=== PATIENT | female | born 1960 | race African-American/Black ===

== ENCOUNTER 2025-02-15 10:30 | Outpatient (RCR) | payer MEDICARE, SELFPAY ==
[2024-12-27 09:34] VITALS: BMI 36.5
[2024-12-27 09:35] VITALS: BMI 36.5
[2025-02-01 09:40] VITALS: BMI 36.6
[2025-02-01 09:42] VITALS: BMI 36.6
== END 2025-03-13 09:39 | disposition home or self-care (01) ==
LOC: ANHDMC 10:30
PROVIDERS: PCP Internal Medicine; Visit Provider Internal Medicine Endocrinology, Diabetes & Metabolism
DX: E11.29 Type 2 diabetes mellitus with other diabetic kidney complication (principal); R80.9 Proteinuria, unspecified; E11.65 Type 2 diabetes mellitus with hyperglycemia; Z71.3 Dietary counseling and surveillance; Z71.89 Other specified counseling
CPT/HCPCS: 97802; 97803; G0108

== ENCOUNTER 2025-04-05 14:30 | Outpatient (RCR) | payer MEDICARE, SELFPAY ==
[2025-03-23 10:50] VITALS: BMI 36.6
[2025-03-23 11:02] VITALS: BMI 36.6
== END 2025-05-29 10:40 | disposition home or self-care (01) ==
LOC: ANHDMC 14:30
PROVIDERS: PCP Internal Medicine; Visit Provider Internal Medicine Endocrinology, Diabetes & Metabolism
DX: E11.29 Type 2 diabetes mellitus with other diabetic kidney complication (principal); R80.9 Proteinuria, unspecified; Z71.89 Other specified counseling
CPT/HCPCS: 97803; G0109

== ENCOUNTER 2025-06-29 14:20 | Outpatient (RCR) | payer MEDICARE, SELFPAY | END 2025-08-11 15:35 | disposition home or self-care (01) | LOC: ANHDMC 14:20 | PROVIDERS: PCP Internal Medicine; Visit Provider Internal Medicine Endocrinology, Diabetes & Metabolism | DX: E11.29 Type 2 diabetes mellitus with other diabetic kidney complication (principal); E11.65 Type 2 diabetes mellitus with hyperglycemia; Z71.89 Other specified counseling | CPT/HCPCS: G0109 ==